=== PATIENT | male | born 1990 | race American Indian/Alaskan Native ===

== ENCOUNTER 2016-10-10 02:49 | Emergency (ER) | payer MEDICAID ==
[2016-10-10 02:57] VITALS: BP 108/48; PULSE 85; RESP 18; TEMP 98.6; O2SAT 97
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
== END 2016-10-10 04:05 | disposition home or self-care (01) ==
LOC: H.ER 02:49
DX: S09.90XA Unspecified injury of head, initial encounter (principal); Y04.0XXA Assault by unarmed brawl or fight, initial encounter; Y92.89 Other specified places as the place of occurrence of the external cause; F12.90 Cannabis use, unspecified, uncomplicated

== ENCOUNTER 2016-10-10 17:28 | Emergency (ER) | payer MEDICAID ==
[2016-10-10 17:39] VITALS: BP 102/52; PULSE 86; RESP 19; TEMP 98.3; O2SAT 99
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
== END 2016-10-10 18:25 | disposition home or self-care (01) ==
LOC: H.ER 17:28
DX: S30.0XXA Contusion of lower back and pelvis, initial encounter (principal); Y35.313A Legal intervention involving baton, suspect injured, initial encounter; Y92.89 Other specified places as the place of occurrence of the external cause; M79.1 Myalgia